=== PATIENT | female | born 2000 | race Hispanic/Latino ===

== ENCOUNTER 2021-05-24 08:42 | Emergency (ER) | payer SELFPAY ==
[~2021-05-24] VITALS: Ht 170.2 cm; Wt 74.8 kg
[2021-05-24 09:11] LABS: APPEARANCE,URINE Turbid (CLEAR); BILIRUBIN,URINE Negative (NEGATIVE); COLOR,URINE Yellow (YELLOW); GLUCOSE, URINE (UA) Negative (NEGATIVE); KETONES,URINE Negative (NEGATIVE); LEUKOCYTE ESTERASE ,URINE Large (NEGATIVE); NITRATE,URINE Negative (NEGATIVE); OCCULT BLOOD,URINE Trace (NEGATIVE); PH,URINE 5.5 (5.0-8.0); PROTEIN,URINE Trace mg/dL (NEGATIVE); UROBILINOGEN,URINE 0.2 mg/dL (0.2-1.0)
[2021-05-24 09:18] LABS: HCG,QUAL RESULT NEGATIVE (NEGATIVE)
[2021-05-24 09:24] LABS: BACTERIA,URINE Moderate /HPF (None Seen); RBC,URINE 0-1 /HPF (0-1); TRICHOMONAS,URINE Moderate /LPF (None Seen)
[2021-05-24] MEDS ORDERED: MACR100 PO (09:36)
[2021-05-24 09:39] VITALS: BP 122/70
== END 2021-05-24 09:40 | disposition home or self-care (01) ==
LOC: EDH 08:42
DX: N39.0 Urinary tract infection, site not specified (principal)
CPT/HCPCS: 81001; 81025; 87088